=== PATIENT | female | born 1930 | race Caucasian/White ===

== ENCOUNTER → 2016-07-29 | Outpatient (CLI) | payer OTHER ==
[~2016-07-29] MED LIST: ATORVASTATIN CA80 MG PO; COUMADIN 2.5MG2.5 M1 PO; ENALAPRIL MALEA20 MG PO; INDERAL60 MG PO; PREMPHASE 0.621 EAC1 PO; PRIMIDONE50 MG PO; TRIAMTERENE-HC1 EAC1 PO
== END ==
LOC: RAD 08:58
DX: Z12.31 Encounter for screening mammogram for malignant neoplasm of breast (principal)